=== PATIENT | male | born 1960 | race Caucasian/White ===

== ENCOUNTER 2017-08-18 12:29 | Emergency (ER) | payer OTHER ==
[~2017-08-18] VITALS: Ht 177.8 cm; Wt 62.3 kg
[~2017-08-18 12:29] MED LIST: DURAGESIC25 MCG TD; OXYCODONE HCL15 MG PO; PERCOCET 5/31 TABLET PO
[2017-08-18 13:34] LABS: HEMATOCRIT 48.6 % (38.0-50.0); MCH 29.4 PG (29.0-34.0); MCHC 34.4 G/DL (30.0-36.0); MCV 85.6 FL (86-99); MEAN PLAT.VOLUME 9.8 uM^3 (9.0-12.4); PLATELET COUNT 316 K/uL (156-360); RBC DIS.WIDTH-CV 13.1 % (11.8-14.6); RBC DIS.WIDTH-SD 40.5 % (39-53); RED BLOOD COUNT 5.68 M/uL (4.00-5.50); WHITE BLOOD COUNT 11.4 K/uL (4.1-10.2)
[2017-08-18 13:46] LABS: CHLORIDE 108 mEq/L (99-109); POTASSIUM 4.4 mEq/L (3.7-5.4); SODIUM 140 mEq/L (136-147)
[2017-08-18 13:47] LABS: GLUCOSE 90 mg/dL (70-99)
[2017-08-18 13:49] LABS: ANION GAP 10 MEQ/L (2-14)
[2017-08-18 13:51] LABS: GFR ESTIMATE (CALCULATED) > 59 mL/min/
[2017-08-18 13:52] LABS: UREA NITROGEN (BUN) 10 mg/dL (9-23)
[2017-08-18 13:55] LABS: ADD MIUA? YES; BILIRUBIN NEGATIVE; BLOOD NEGATIVE; COLOR AMBER ((YELLOW)); GLUCOSE (STRIP) NEGATIVE; KETONES NEGATIVE; LEUKOCYTES TRACE; NITRITE NEGATIVE; PROTEIN (STRIP) NEGATIVE; SPECIFIC GRAVITY 1.017 (1.000-1.030); UROBILINOGEN 0.2 MG/DL (0.2-1.0)
[2017-08-18 14:12] LABS: BACTERIA NONE SEEN /HPF; EPITHELIAL CELLS RARE /HPF; MUCUS 2+ /LPF; RED BLOOD CELLS 0-5 /HPF (0-5); UCUL ADDED? NO; WHITE BLOOD CELLS 0-5 /HPF (0-5)
[2017-08-18] MEDS ORDERED: SKELAXIN800 MG PO (16:09)
[2017-08-18 16:18] VITALS: BP 146/76
== END 2017-08-18 16:19 | disposition home or self-care (01) ==
LOC: EME 12:29
PROVIDERS: Physician Assistant
DX: M54.5 Low back pain (principal); G89.29 Other chronic pain; S60.512A Abrasion of left hand, initial encounter; R10.84 Generalized abdominal pain; R51 Headache; W17.89XA Other fall from one level to another, initial encounter; F17.200 Nicotine dependence, unspecified, uncomplicated; Z88.5 Allergy status to narcotic agent
CPT/HCPCS: 70450; 71020; 72100; 73130; 74177; 80048; 81003; 85027; 99281; 99285; J1885; J3010; J7030

== ENCOUNTER 2018-05-02 18:09 | Emergency (ER) | payer OTHER ==
[~2018-05-02] VITALS: Ht 177.8 cm; Wt 62.1 kg
[~2018-05-02 18:09] MED LIST changes: +SKELAXIN800 MG PO
[2018-05-02 20:30] VITALS: BP 135/80
== END 2018-05-02 20:30 | disposition home or self-care (01) ==
LOC: EME 18:09
PROC: 3E0234Z Introduction of Serum, Toxoid and Vaccine into Muscle, Percutaneous Approach (ICD-10-PCS; principal; 2018-05-02)
DX: S32.10XA Unspecified fracture of sacrum, initial encounter for closed fracture (principal); M79.661 Pain in right lower leg; M79.662 Pain in left lower leg; W01.198A Fall on same level from slipping, tripping and stumbling with subsequent striking against other object, initial encounter; Z23 Encounter for immunization; F17.200 Nicotine dependence, unspecified, uncomplicated
CPT/HCPCS: 72220; 73590; 99281; 99284